=== PATIENT | female | born 1950 ===

== ENCOUNTER → 2023-08-13 11:43 | Outpatient (BNVA) | payer MEDICARE, SELFPAY | PROVIDERS: PCP Physician Assistant; Visit Provider Dietitian, Registered ==

== ENCOUNTER 2023-12-25 10:35 | Emergency (ER) | payer MEDICARE, SELFPAY ==
--- NOTE | ~2023-12-25 | XR_ITS ---
EXAMINATION: XR CHEST CLINICAL INFORMATION: Chest pain COMPARISON: None available. TECHNIQUE: Frontal view of the chest was obtained. FINDINGS: Heart size borderline with normal caliber pulmonary vessels. Lungs clear. No congestive change. There are surgical clips in the right upper quadrant. XR/XR chest 1V IMPRESSION: No active disease.
[2023-12-25 10:40] VITALS: BP 157/70; PULSE 69; RESP 20; TEMP 36.2; O2SAT 100; BMI 27.7
--- NOTE | 2023-12-25 10:44 | ECG_ITS ---
Test Reason : chest pain Blood Pressure : / mmHG Vent. Rate : 063 BPM Atrial Rate : 063 BPM P-R Int : 098 ms QRS Dur : 080 ms QT Int : 410 ms P-R-T Axes : 066 049 040 degrees QTc Int : 419 ms Sinus rhythm with short MO Otherwise normal ECG No previous ECGs available Referred By: Generic ED Physician Electronically Signed By:Benji Pabon
[2023-12-25 10:59] LABS: MANUAL DIFF FLAG NO
[2023-12-25 11:01] LABS: Basophils Percent Auto 0.4 % (0-2); Eosinophils Absolute Auto 0.1 X10*3/uL (0.0-0.4); Eosinophils Percent Auto 1.9 % (0-4); Hematocrit 29.2 % (37.0-47.0); Hemoglobin 9.4 g/dl (12.0-16.0); Imm Gran Abs Auto 0.01 X10*3/uL (0.00-0.03); Imm Gran Pct Auto 0.1 % (0.0-0.4); Lymphocytes Absolute Auto 1.5 X10*3/uL (1.2-4.9); Lymphocytes Percent Auto 19.8 % (20-40); Mean Corpuscular HGB Conc 32.2 g/dl (31.0-35.0); Mean Corpuscular Hemoglobin 25.9 pg (27.0-33.0); Mean Corpuscular Volume 80.4 fL (80.0-98.0); Mean Platelet Volume 10.1 fL (9.4-12.3); Monocytes Absolute Auto 0.5 X10*3/uL (0.1-1.2); Monocytes Percent Auto 6.4 % (2-11); Neutrophils Absolute Auto 5.2 x10*3/uL (2.0-8.3); Neutrophils Percent Auto 71.4 % (45-73); Platelet Count 304 X10*3/uL (160-400); Red Blood Count 3.63 X10*6/uL (4.20-5.50); Red Cell Distribution Width 16.2 % (11.0-16.0); White Blood Count 7.3 X10*3/uL (4.8-10.8)
[2023-12-25 11:17] LABS: Alanine Aminotransferase 10 U/L (0-31); Albumin Level 3.6 g/dL (3.5-5.0); Alkaline Phosphatase 76 U/L (39-117); Anion Gap 15 (12-20); Aspartate Amino Transferase 13 U/L (5-31); Bilirubin Direct 0.2 mg/dL (0.0-0.5); Bilirubin Total 0.6 mg/dL (0.0-1.0); Blood Urea Nitrogen 21 mg/dL (9-16); Calcium 9.4 mg/dL (8.4-10.2); Carbon Dioxide 21 mmol/L (22-29); Chloride 109 mmol/L (96-108); Creatinine Clr Calc Pharmacy 33.1; Estimated Glomerular Filt Rate 39; Glucose Random 169 mg/dL (60-115); Lipase 44 U/L (8-78); Potassium 4.5 mmol/L (3.3-5.1); Sodium 140 mmol/L (135-145); Total Protein 6.4 g/dL (6.5-8.0)
[2023-12-25 11:55] VITALS: BP 175/72; PULSE 63; RESP 16; O2SAT 100
--- NOTE | 2023-12-25 12:30 | ED.CHESTPAIN ---
HPI - Chest Pain General Chief Complaint: Chest Pain Stated Complaint: SOB, chest pain Time Seen by Provider: 12/25/23 12:22 Source: patient Mode of arrival: ambulatory Limitations: no limitations History of Present Illness HPI narrative: This is a 73-year-old female NIDDM type II, DM, HTN, HLD, CKD stage 3, hypothyroidism, EF 60-65%, CAD s/p stent in June 2023 presenting to the emergency department from cardiac rehab where she experienced an episode of substernal chest discomfort as well as some shortness of breath while exercising ( rowing) at rehab. Patient reports pain has resolved however it was pretty uncomfortable when she 1st experienced the pain lated 5 mins. Pain went away on its own. Patient denies fevers, chills, nausea, vomiting, cough, headach, chest pain, shortness breath, abdominal pain, headache and vision changes at this time. Related Data Allergies Allergy/AdvReac Type Severity Reaction Status Date / Time Unable to Assess Allergy Unverified 12/25/23 12:22 Review of Systems Review of Systems: Constitutional : No Weight loss, No Fever, No Chills, No Fatigue, No Malaise ENT/Mouth : No sore throat, No Rhinorrhea Eyes: No Eye Pain, No Swelling, No Redness Cardiovascular : No Chest Pain, No SOB, No Dyspnea on Exertion, No Orthopnea, No Edema, No Palpitations Respiratory : No Cough, No Sputum, No Wheezing Gastrointestinal : No Nausea, No Vomiting, No Diarrhea, No Constipation, No abdominal Pain, No Hematochezia, No Melena Genitourinary : No Dysuria, No Urinary Frequency, No Hematuria, Musculoskeletal : No joint pain, No Myalgias, No Joint Swelling Skin : No Skin Lesions, No rash Neuro : No Weakness, No Numbness, No Dizziness, No Headache Psych : No Anxiety/Panic, No Depression All other systems reviewed and are negative Yes all other systems are reviewed and are negative PMFSH Past Medical History Attestation statement: The following information was validated with the patient. Source: old records reviewed and nursing notes reviewed Social History Social History Smoked in Last 30 Days: No Use of substances other than those prescribed or required for medical reasons: No Advance Directives: No Physical Exam Vital Signs: Vital Signs: Last Vital Signs Temp 97.5 F 12/25/23 12:44 Pulse 74 12/25/23 15:12 Resp 16 12/25/23 15:12 BP 138/52 L 12/25/23 15:12 Pulse Ox 99 12/25/23 15:12 O2 Del Method Room Air 12/25/23 15:12 BMI result Body Mass Index 27.7 vss Appearance: Alert.? Oriented X3.? No acute distress.? Head: Normocephalic, atraumatic, no step-offs or deformities Eyes: Pupils equal, round and reactive to light.? ENT: Pharynx normal.? Neck: Normal inspection.? Neck supple.? CVS: Normal heart rate and rhythm.? Pulses normal.? Respiratory: No respiratory distress.? Breath sounds normal.? Abdomen: Soft and nontender.? Skin: Skin warm and dry.? Normal skin color.? Normal skin turgor.? Extremities: No lower extremity edema.? No calf ttp. 5/5 strength to bilateral upper and lower extremitie Neuro: Oriented X 3.? No motor deficit.? No sensory deficit. CN 2-12 intact Course Reevaluation(s) Reevaluation #1: Upon chart review it is noted that patient developed some chest discomfort during exercise , rated at a 5/10 and then it went down to a 2/10 with rest. Initially did not want to come to the emergency department. Time: 12:34 Reevaluation #2: Patient still not having pain. Would like to go home. Pending second trop Time: 14:18 Reevaluation #3: Second trope not meeting delta criteria. Discuss this case with Cardiology Dr. Pabon who states EKG nonischemic patient can be discharged home if pain free and if pain didnt feel like previous cp which she got stended for. Patient states pain felt different and no cp at all doesnt want to stay for stress test. Pain 0/10 on pain scale. Educated patient on diagnosis and treatment plan, answered all question, patient verbalizes understanding. At this time patient will be discharged home, advised to return with new or worsening symptoms. Educated on worrisome signs and symptoms and when to return. At this time I feel comfortable discharge home. Time: 16:01 Medical Decision Making Medical Decision Making MDM Narrative: 73-year-old female presents to the emergency department from cardiac rehab where she developed some substernal chest discomfort with exercise which has now resolved Physical exam benign History and physical exam concerning for unstable angina. Unlikely ACS, dissection, PE. Plan- labs, ekg, imaging Differential Diagnosis Differential Diagnoses: The differential diagnosis associated with the presentation includes History and physical exam concerning for unstable angina. Unlikely ACS, dissection, PE. Admission/Observation Consideration of admission/observation: Escalation of care including admission/observation considered Consult Healthcare Provider Management of the patient was discussed with: Marketing Representative (cardiology- ) Lab Data MDM Lab Attestation statement: I reviewed the patient's lab results. 12/25/23 10:56 12/25/23 10:56 Labs: Lab Results 12/25/23 12/25/23 12/25/23 Range/Units 10:56 12:32 15:12 WBC 7.3 (4.8-10.8) X10*3/uL RBC 3.63 L (4.20-5.50) X10*6/uL Hgb 9.4 L (12.0-16.0) g/dl Hct 29.2 L (37.0-47.0) % MCV 80.4 (80.0-98.0) fL MCH 25.9 L (27.0-33.0) pg MCHC 32.2 (31.0-35.0) g/dl RDW 16.2 H (11.0-16.0) % Plt Count 304 (160-400) X10*3/uL MPV 10.1 (9.4-12.3) fL Immature Gran % (Auto) 0.1 (0.0-0.4) % Neut % (Auto) 71.4 (45-73) % Lymph % (Auto) 19.8 L (20-40) % Ogle % (Auto) 6.4 (2-11) % Eos % (Auto) 1.9 (0-4) % Baso % (Auto) 0.4 (0-2) % Lymph # (Auto) 1.5 (1.2-4.9) X10*3/uL Ogle # (Auto) 0.5 (0.1-1.2) X10*3/uL Eos # (Auto) 0.1 (0.0-0.4) X10*3/uL Baso # (Auto) 0.0 (0.0-0.2) X10*3/uL Abs Immat Gran (auto) 0.01 (0.00-0.03) X10*3/uL Absolute Neuts (auto) 5.2 (2.0-8.3) x10*3/uL Absolute Nucleated RBC 0.000 (0.0-0.012) X10*3/uL Nucleated RBC % (auto) 0.0 (0.0-0.2) /100WBC PT 11.8 (11.1-13.3) SEC INR 1.0 (0.9-1.1) Sodium 140 (135-145) mmol/L Potassium 4.5 (3.3-5.1) mmol/L Chloride 109 H (96-108) mmol/L Carbon Dioxide 21 L (22-29) mmol/L Anion Gap 15 (12-20) BUN 21 H (9-16) mg/dL Creatinine 1.34 (0.5-1.4) mg/dL Estim Creat Clear Calc 33.1 Estimated GFR 39 Random Glucose 169 H (60-115) mg/dL Calcium 9.4 (8.4-10.2) mg/dL Total Bilirubin 0.6 (0.0-1.0) mg/dL Direct Bilirubin 0.2 (0.0-0.5) mg/dL AST 13 (5-31) U/L ALT 10 (0-31) U/L Alkaline Phosphatase 76 (39-117) U/L Troponin I High Sens 3.0 4.3 (<3.5-17.0) ng/L Total Protein 6.4 L (6.5-8.0) g/dL Albumin 3.6 (3.5-5.0) g/dL Lipase 44 (8-78) U/L Independent Interpretation I performed an independent interpretation of an: EKG (Ventricular rate of 63 ME short, QRS normal, QT/QTC normal. No ST elevations or inversions concerning for ischemia) and Plain X-Ray (XR/XR chest 1V IMPRESSION: No active disease. ) Radiology Impression Discussion of test interpretation with radiology: I have reviewed the radiologist's reading. External Record Review External record reviewed: Inpatient record, Office record, Outpatient record, Prior outpatient labs, Prior outpatient radiology, Primary care record and Outside ED record Critical Care Time Critical Care Time Critical Care Time: Yes Total Critical Care Time: 35 Attestation: I attest to this time spent taking care of the patient, obtaining history, physical, reviewing labs, imaging, speaking to my attending, speaking to specialist. Discharge Plan Discharge Clinical Impression: Angina pectoris Patient Disposition: Home, Self-Care Instructions: Angina (ED) Additional Instructions: Take your medications as prescribed. If you were prescribed antibiotics today, it is important that you take your medication to their entirety, do not skip any doses, do not finish them early. Follow-up with your primary care provider this week. Return to the emergency department with new or worsening symptoms. Such as fevers, chills, chest pain, shortness of breath, nausea, vomiting, dizziness, headache, vision changes, lethargy In case of emergency call 911 Please follow-up with cardiology. Referrals: [facility] [place]Provider Group] - 1 day Marisol Kendall PA [Primary Care Provider] - 2 days
[2023-12-25 12:44] VITALS: BP 183/73; PULSE 65; RESP 18; TEMP 36.4; O2SAT 100
[2023-12-25 12:45] LABS: Prothrombin Time 11.8 SEC (11.1-13.3)
[2023-12-25 15:12] VITALS: BP 138/52; PULSE 74; RESP 16; O2SAT 99
[2023-12-25 15:39] LABS: Troponin-I High Sensitivity 4.3 ng/L (<3.5-17.0)
== END 2023-12-25 16:28 | disposition home or self-care (01) ==
PROVIDERS: Physician Assistant; Emergency Provider Emergency Medicine; PCP Physician Assistant
DX: I20.9 Angina pectoris, unspecified (principal); R07.89 Other chest pain; R06.02 Shortness of breath; E11.22 Type 2 diabetes mellitus with diabetic chronic kidney disease; E11.65 Type 2 diabetes mellitus with hyperglycemia; I13.10 Hypertensive heart and chronic kidney disease without heart failure, with stage 1 through stage 4 chronic kidney disease, or unspecified chronic kidney disease; N18.30 Chronic kidney disease, stage 3 unspecified; Z79.899 Other long term (current) drug therapy
CPT/HCPCS: 36415; 71045; 80048; 80076; 83690; 84484; 85025; 85610; 93005; 99283; 99285

== ENCOUNTER → 2023-12-25 10:44 | Outpatient (BNV) | payer MEDICARE, SELFPAY | PROVIDERS: Emergency Provider Emergency Medicine; PCP Physician Assistant; Visit Provider Internal Medicine Cardiovascular Disease | DX: I45.6 Pre-excitation syndrome (principal) | CPT/HCPCS: 93010 ==

== ENCOUNTER 2024-01-28 10:04 | Outpatient (AMB) | payer MEDICARE, SELFPAY ==
[2024-01-28 10:11] VITALS: BMI 27.8
--- NOTE | 2024-01-28 10:11 | A.OFFVIS_ITS ---
Intake VS Expanded 01/28/24 10:11 01/28/24 12:22 Height 5 ft 1 in 5 ft 1 in Weight 147 lb 0.773 oz 147 lb BMI 27.8 27.8 Intake Visit Reasons: DM Allergies Unable to Assess Allergy (Unverified 12/25/23 12:22) HPI Nutrition Presentation Details Pt presents for MNT for T2DM. Pt was referred by Chiara Bull/Dr Montez from [facility]. Pt has hx of CKD stage 3, HNT, Hyperlipidemia, GERD, Hypothyroidism Pt reports having 3 meals per day , reports meals are small due to nausea, low appetite. Pt denies vomiting. B :may consist of 2-3 cracker with butter and coffee with milk, diet sugar L: noodles or root vegetables (no protein/veg/fruit added) D; rice (white/yellow no legumes) and bits of meat about 2oz or root vegetables plain with butter or oil the majority of the time ( no protein or non starchy veg added snack coffee with milk and crackers with butter fruits 0-1/d milk/cheese/yogurt: 1-2 /d non starchy ve x/wk (reports lettuce/tomatoes) protein 2-4 oz/d (tuna, ham, bits of sausage - reports limited due to nauseous feeling) starches > 16 oz/d beverages: coffee (16 oz), water (12 oz/d) physical activity--- ETOH--- Reports nausea and less appetite for protein foods Pt reports getting iron infusion (reports having had 2 iron infusions this month at [facility]) Pt did not bring glucometer , reports having erratic blood glucose from 60s to over 200 pre or post meals no recent A1c on file - last on 12/2022 at 8.2% Focused findings Nutrition-focused findings taste alterations, loss of appetite and nausea [employer] Equation Height 5 ft 1 in Weight 147 lb Resting Metabolic Rate 1119.25 Calculated Activity Level Sedentary Calories Needed to Maintain Weight 1343.10 Diagnosis Nutrition problem #1 inadequate protein energy As related to (etiology) #1 lack of nutrit education, decreased appetite and renal dysfunction As evidenced by (sign/symptom) #1 abnormal lab values ( Prot 6.4, Hgb/Hct 9.4/29.2 on 12/2023. Pt also reports erratic bg 60s to over 200 pre or post meals) and knowledge deficit of diet Most Recent Diabetes Results: Creatinine 1.34 mg/dL (0.5-1.4) 12/25/23 Blood Urea Nitrogen 21 mg/dL (9-16) H 12/25/23 Sodium 140 mmol/L (135-145) 12/25/23 Potassium 4.5 mmol/L (3.3-5.1) 12/25/23 Chloride 109 mmol/L (96-108) H 12/25/23 Carbon Dioxide 21 mmol/L (22-29) L 12/25/23 Calcium 9.4 mg/dL (8.4-10.2) 12/25/23 AST 13 U/L (5-31) 12/25/23 ALT 10 U/L (0-31) 12/25/23 Total Protein 6.4 g/dL (6.5-8.0) L 12/25/23 Albumin 3.6 g/dL (3.5-5.0) 12/25/23 [facility] Medical History (Updated 01/28/24 @ 12:29 by Chaya Echevarria, RD, LDN) GERD (gastroesophageal reflux disease) Hypothyroidism HTN (hypertension) CKD (chronic kidney disease) stage 3, GFR 30-59 ml/min Assessment & Plan Assessment & Plan (1) T2DM (type 2 diabetes mellitus): Code(s): E11.9 - Type 2 diabetes mellitus without complications Plan: RECOMMENDATION for PCP: Prescription for Ensure high protein (which provides 16 g protein each) for 2 a day. Pt may have erratic blood glucose level related to lack of protein intake in diet , CKD, and anemia. May recommend prescribing Ensure high protein supplement to have one in between meals twice a day related to CKD with anemia, low protein level as per labs on 12/2023, statements of low appetite, nausea and reduced protein in diet . Wt: 67 Kg ( 01/2024 ) Est kcal needs as per 25kcal/kg bw: 1700 (40% carb, 30% protein/fat) Est fluid needs as per 25-30 ml/d: 1700 Est prot per day as per 1 g/kg bw: 67 Recommend fiber intake : 8-10 g per day and gradually increase to 25-28 g per day for women and 35-38 g for men or as tolerated Recommend sodium intake per day : 1500 - less than 2000 mg Educated patient on: ( R = reviewed V = verbalizes understanding N/R = needs review N/A = not applicable * Food sources of carbohydrate, adequate serving sizes and its role in various health conditions: R * Differences between complex carbohydrates a simple carbohydrates, role of fiber in diet: R * Lean protein sources of foods, its relationship to bg, anemia and symptoms related to nausea : R * Differences between types of fats and role in diet (mono on saturated fat fatty acids, saturated fatty acids, trans fats): N/R * Food sources of sodium in salt and healthy modifications for heart health in kidney health: NR * Vitamins and minerals: R (iron sources of foods) * Healthy plate method concept: R * Physical activity: Benefits a precaution: N/R * Hypoglycemia protocol (rule of 15): R * Dietary prevention of Hyperglycemia: R Patient Instructions: Include lean protein in your diet -working on balancing your meals example add tuna to the crackers in the morning, add egg to the noodle soup. See list of protein and iron sources of foods to include in your diet following healthy plate method keep a food record and bring to next follow up for review. Recommend prescription from PCP for Ensure high protein to have one in between meals twice a day Coding Level of Care Code Nutr Indiv Intake (90392) Diagnoses T2DM (type 2 diabetes mellitus) E11.9 Time Spent (min) 35
[2024-01-28 12:22] VITALS: BMI 27.8
== END 2024-01-28 11:05 | disposition home or self-care (01) ==
PROVIDERS: PCP Physician Assistant; Visit Provider Dietitian, Registered
DX: E11.9 Type 2 diabetes mellitus without complications (principal)

== ENCOUNTER → 2024-01-28 10:04 | Outpatient (BNVA) | payer MEDICARE, SELFPAY | PROVIDERS: PCP Physician Assistant; Visit Provider Dietitian, Registered | DX: E11.9 Type 2 diabetes mellitus without complications (principal) | CPT/HCPCS: 97802 ==

== ENCOUNTER 2024-02-17 10:00 | Outpatient (RCR) | payer MEDICARE, SELFPAY | END 2024-02-19 12:11 | disposition home or self-care (01) | LOC: HO.CR 10:00 | PROVIDERS: PCP Physician Assistant; Visit Provider Nurse Practitioner Family | DX: Z98.61 Coronary angioplasty status (principal) | CPT/HCPCS: 93798 ==

== ENCOUNTER 2024-02-25 09:54 | Outpatient (AMB) | payer MEDICARE, SELFPAY ==
[2024-02-25 10:00] VITALS: BMI 27.4
--- NOTE | 2024-02-25 10:00 | MHC.AMNUTRGE ---
Intake VS Expanded 02/25/24 10:00 Height 5 ft 1 in Weight 145 lb 1.027 oz BMI 27.4 Intake Visit Reasons: T2DM/CONFIRMED Allergies Unable to Assess Allergy (Unverified 12/25/23 12:22) HPI Nutrition Presentation Details Pt presents for MNT follow up for T2DM Pt reports doing ok Pt reports not including meats/protein in diet , does not like the flavor not having nutritional supplements Reports choosing foods with little preparation for the most part Breakfast may be a piece of bread with butter and water or tea or coffee Lunch may be ramen noodles and nothing else added, water Dinner may be root vegetables boiled or sandwich with tuna or ham and cheese or may have cereal Snack on crackers and butter or cheese Not on nutritional supplements as of yet Most Recent Diabetes Results: Creatinine 1.34 mg/dL (0.5-1.4) 12/25/23 Blood Urea Nitrogen 21 mg/dL (9-16) H 12/25/23 Sodium 140 mmol/L (135-145) 12/25/23 Potassium 4.5 mmol/L (3.3-5.1) 12/25/23 Chloride 109 mmol/L (96-108) H 12/25/23 Carbon Dioxide 21 mmol/L (22-29) L 12/25/23 Calcium 9.4 mg/dL (8.4-10.2) 12/25/23 AST 13 U/L (5-31) 12/25/23 ALT 10 U/L (0-31) 12/25/23 Total Protein 6.4 g/dL (6.5-8.0) L 12/25/23 Albumin 3.6 g/dL (3.5-5.0) 12/25/23 [facility] Medical History (Updated 01/28/24 @ 12:29 by Chaya Echevarria, RD, LDN) GERD (gastroesophageal reflux disease) Hypothyroidism HTN (hypertension) CKD (chronic kidney disease) stage 3, GFR 30-59 ml/min Assessment & Plan Assessment & Plan (1) T2DM (type 2 diabetes mellitus): Code(s): E11.9 - Type 2 diabetes mellitus without complications Plan: RECOMMENDATION for PCP: Prescription for Ensure high protein (which provides 16 g protein each) for 2 a day. Pt may have erratic blood glucose level related to lack of protein intake in diet , CKD, and anemia. May recommend prescribing Ensure high protein supplement to have one in between meals twice a day related to CKD with anemia, low protein level as per labs on 12/2023, statements of low appetite, nausea and reduced protein in diet . Wt: 67 Kg ( 01/2024 ) Est kcal needs as per 25kcal/kg bw: 1700 (40% carb, 30% protein/fat) Est fluid needs as per 25-30 ml/d: 1700 Est prot per day as per 1 g/kg bw: 67 Recommend fiber intake : 8-10 g per day and gradually increase to 25-28 g per day for women and 35-38 g for men or as tolerated Recommend sodium intake per day : 1500 - less than 2000 mg Educated patient on: ( R = reviewed V = verbalizes understanding N/R = needs review N/A = not applicable Food sources of carbohydrate, adequate serving sizes and its role in various health conditions: R Differences between complex carbohydrates a simple carbohydrates, role of fiber in diet: R Lean protein sources of foods, its relationship to bg, anemia and symptoms related to nausea : R Differences between types of fats and role in diet (mono on saturated fat fatty acids, saturated fatty acids, trans fats): N/R Food sources of sodium in salt and healthy modifications for heart health in kidney health: R- printed info provided in [employer] Vitamins and minerals: R (iron sources of foods) Healthy plate method concept: R Physical activity: Benefits a precaution: N/R Hypoglycemia protocol (rule of 15): R Dietary prevention of Hyperglycemia: R Patient Instructions: Have a snack at bedtime consisting of at least 20-30 g of carb to prevent fasting hypoglycemia and include foods with iron - -- a fruit and peanut butter, 1 cup of milk - 1/2 sandwich (egg salad, chicken salad as ex) and 1 c of milk - fortified cereals ex 1 cheerios and 1/2 to 1 c of milk Add asparagus to the rice/noodles , add eggs to the soups, add spinach - choose egg noodles or ybarra pasta see list of protein foods options to add to foods and list of iron rich foods to add to foods/include in your diet Have a nutritional supplement at least once a day in between meals Coding Level of Care Code Nutr Indiv Subseq (04435) Diagnoses T2DM (type 2 diabetes mellitus) E11.9 Time Spent (min) 30
== END 2024-02-25 10:55 | disposition home or self-care (01) ==
PROVIDERS: PCP Physician Assistant; Visit Provider Dietitian, Registered
DX: E11.9 Type 2 diabetes mellitus without complications (principal)

== ENCOUNTER → 2024-02-25 09:54 | Outpatient (BNVA) | payer MEDICARE, SELFPAY | PROVIDERS: PCP Physician Assistant; Visit Provider Dietitian, Registered | DX: E11.9 Type 2 diabetes mellitus without complications (principal) | CPT/HCPCS: 97803 ==

== ENCOUNTER 2024-04-08 09:49 | Outpatient (AMB) | payer MEDICARE, SELFPAY ==
--- NOTE | 2024-04-08 10:01 | A.OFFVIS_ITS ---
VS Expanded 04/08/24 10:02 Height 5 ft 1 in Weight 144 lb 2.917 oz BMI 27.2 Intake Visit Reasons: T2DM/ VMB FULL Allergies Unable to Assess Allergy (Unverified 12/25/23 12:22) Nutrition Presentation Details: Pt presents for MNT f/u for T2DM Pt reports working on not skipping meals and having a nutritional supplement instead of skipping meals Pt reports reading food labels , choosing foods lower in sodium, and working on balancing meals including lean protein and starches. Pt reports having better glucose levels, per glucometer brought today: 7 d fasting blood sugar average 90 mg/dl, 14 d fasting bg average at 88 mg/dl, for the past 14 days her fassting blood sugar ranged from 70-115 mg/dl DM MEDS: Pt reports taking glipizide 10 mg once a day , Actos 45 mg/d, metformin 1000 mg twice a day BS Monitoring Most Recent Diabetes Results: Creatinine 1.34 mg/dL (0.5-1.4) 12/25/23 Blood Urea Nitrogen 21 mg/dL (9-16) H 12/25/23 Sodium 140 mmol/L (135-145) 12/25/23 Potassium 4.5 mmol/L (3.3-5.1) 12/25/23 Chloride 109 mmol/L (96-108) H 12/25/23 Carbon Dioxide 21 mmol/L (22-29) L 12/25/23 Calcium 9.4 mg/dL (8.4-10.2) 12/25/23 AST 13 U/L (5-31) 12/25/23 ALT 10 U/L (0-31) 12/25/23 Total Protein 6.4 g/dL (6.5-8.0) L 12/25/23 Albumin 3.6 g/dL (3.5-5.0) 12/25/23 [facility] Medical History (Updated 01/28/24 @ 12:[address], LDN) GERD (gastroesophageal reflux disease) Hypothyroidism HTN (hypertension) CKD (chronic kidney disease) stage 3, GFR 30-59 ml/min Assessment & Plan Assessment & Plan (1) T2DM (type 2 diabetes mellitus): Code(s): E11.9 - Type 2 diabetes mellitus without complications Category: Medical Plan: Wt: 67 Kg ( 01/2024 ), 65 kg (04/2024) Est kcal needs as per 25kcal/kg bw: 1700 (40% carb, 30% protein/fat) Est fluid needs as per 25-30 ml/d: 1700 Est prot per day as per 1 g/kg bw: 67 Recommend fiber intake : 8-10 g per day and gradually increase to 25-28 g per day for women and 35-38 g for men or as tolerated Recommend sodium intake per day : 1500 - less than 2000 mg Educated patient on: ( R = reviewed V = verbalizes understanding N/R = needs review N/A = not applicable * Food sources of carbohydrate, adequate serving sizes and its role in various health conditions: R * Differences between complex carbohydrates a simple carbohydrates, role of fiber in diet: R * Lean protein sources of foods, its relationship to bg, anemia and symptoms related to nausea : R * Differences between types of fats and role in diet (mono on saturated fat fatty acids, saturated fatty acids, trans fats): N/R * Food sources of sodium in salt and healthy modifications for heart health in kidney health: R- printed info provided in [employer] * Vitamins and minerals: R (iron sources of foods) * Healthy plate method concept: R * Physical activity: Benefits a precaution: N/R * Hypoglycemia protocol (rule of 15): R * Dietary prevention of Hyperglycemia: R Patient Instructions: Continue having 3 meal per day balancing your meals with a combination of protein/starch/vegetables Have a bedtime snack consisting of at least 1 carb choice and 1-2 oz of protein (fruit/a slice of bread/ 1 c low sugar cereal /1 cup of milk/ yogurt /egg/ cotta ge chees/peanut butter ) to prevent low blood sugars at night / Work on reducing on sodium intake - switch to low sodium seasoning - see list of options monitor your blood sugar 2 hours after a meal Discuss your diabetes medications with your doctor Coding Level of Care Code Nutr Indiv Subseq (20381) Diagnoses T2DM (type 2 diabetes mellitus) E11.9 Time Spent (min) 30
[2024-04-08 10:02] VITALS: BMI 27.2
== END 2024-04-08 10:45 | disposition home or self-care (01) ==
PROVIDERS: PCP Physician Assistant; Visit Provider Dietitian, Registered
DX: E11.9 Type 2 diabetes mellitus without complications (principal)

== ENCOUNTER → 2024-04-08 09:49 | Outpatient (BNVA) | payer MEDICARE, SELFPAY | PROVIDERS: PCP Physician Assistant; Visit Provider Dietitian, Registered | DX: E11.9 Type 2 diabetes mellitus without complications (principal) | CPT/HCPCS: 97803 ==

== ENCOUNTER 2024-05-06 12:42 | Outpatient (REF) | payer MEDICARE, SELFPAY ==
[2024-05-06 15:17] LABS: Glucose, Whole Blood 113 mg/dL (60-115)
== END 2024-05-06 12:43 | disposition home or self-care (01) ==
LOC: HO.LNP 12:42
PROVIDERS: Visit Provider Nurse Practitioner Family
DX: Z13.9 Encounter for screening, unspecified (principal)
CPT/HCPCS: 82947

== ENCOUNTER 2024-06-08 08:21 | Outpatient (AMB) | payer MEDICARE, SELFPAY ==
[2024-06-08 08:32] VITALS: BMI 27.2
--- NOTE | 2024-06-08 08:32 | A.OFFVIS_ITS ---
VS Expanded 06/08/24 08:32 Height 5 ft 1 in Weight 143 lb 15.39 oz BMI 27.2 Intake Visit Reasons: T2DM/CONFIRMED Allergies Unable to Assess Allergy (Unverified 12/25/23 12:22) Nutrition Presentation Details: Pt presents for MNT f/u for T2DM Pt reports having 3 meals/day and 1-2 snacks a day. Meals consist of B: Coffee with diet sugar and hot cereal or 1 toast and egg and coffee L: skips or has glucerna shake or 1/2 sand D: rice/chicken or pasta salad with tuna and carrots, water or sprite snack: crackers with peanut butter or piece of cake Pt brought glucometer ,Pt monitoring in the fasting state , 14 d BG average at 121 mg/dl, FBG in the past 7 days: 102, 141, ,78,97, 162, 103,175, 93,178,138,195,95,118, 97 Pt reports taking her DM meds as rx by prescribing provider: ,glipizide 10 mg/d, Actos, not sure if 30 mg or 45 mg/d, metformin 1000 mg twice/day Pt reports having lesser episodes of elevated fasting blood glucose and also lesser episodes of hypoglycemia. BS Monitoring Most Recent Diabetes Results: Creatinine 1.34 mg/dL (0.5-1.4) 12/25/23 Blood Urea Nitrogen 21 mg/dL (9-16) H 12/25/23 Sodium 140 mmol/L (135-145) 12/25/23 Potassium 4.5 mmol/L (3.3-5.1) 12/25/23 Chloride 109 mmol/L (96-108) H 12/25/23 Carbon Dioxide 21 mmol/L (22-29) L 12/25/23 Calcium 9.4 mg/dL (8.4-10.2) 12/25/23 AST 13 U/L (5-31) 12/25/23 ALT 10 U/L (0-31) 12/25/23 Total Protein 6.4 g/dL (6.5-8.0) L 12/25/23 Albumin 3.6 g/dL (3.5-5.0) 12/25/23 [facility] Medical History (Updated 01/28/24 @ 12:[address], LDN) GERD (gastroesophageal reflux disease) Hypothyroidism HTN (hypertension) CKD (chronic kidney disease) stage 3, GFR 30-59 ml/min Assessment & Plan Assessment & Plan (1) T2DM (type 2 diabetes mellitus): Code(s): E11.9 - Type 2 diabetes mellitus without complications Category: Medical Plan: Wt: 67 Kg ( 01/2024 ), 65 kg (04/2024), 65 kg(06/2024) Est kcal needs as per 25kcal/kg bw: 1700 (40% carb, 30% protein/fat) Est fluid needs as per 25-30 ml/d: 1700 Est prot per day as per 1 g/kg bw: 67 Recommend fiber intake : 8-10 g per day and gradually increase to 25-28 g per day for women and 35-38 g for men or as tolerated Recommend sodium intake per day : 1500 - less than 2000 mg Educated patient on: ( R = reviewed V = verbalizes understanding N/R = needs review N/A = not applicable * Food sources of carbohydrate, adequate serving sizes and its role in various health conditions: R * Differences between complex carbohydrates a simple carbohydrates, role of fiber in diet: R * Lean protein sources of foods, its relationship to bg, anemia and symptoms related to nausea : R * Differences between types of fats and role in diet (mono on saturated fat fatty acids, saturated fatty acids, trans fats): R * Food sources of sodium in salt and healthy modifications for heart health in kidney health: R- printed info provided in Span * Vitamins and minerals: R (iron sources of foods) * Healthy plate method concept: R * Physical activity: Benefits a precaution: R * Hypoglycemia protocol (rule of 15): R, V * Dietary prevention of Hyperglycemia: R , V Patient Instructions: Continue working on following healthy plate method,not skipping meals to prevent having high fluctuation in blood sugar level Carry a snack with you to prevent skipping meals : ex: peanut butter crackers or nut butter sand or fruit and nuts or glucerna shake as example Have a bedtime snack to prevent fasting low blood glucose monitor your blood sugar 2 hours after eating your largest meal , blood sugar goal is less than 180, unless otherwise specified by your doctor communicate with your doctor your blood sugar level for further evaluation. Coding Level of Care Code Nutr Indiv Subseq (99683) Diagnoses T2DM (type 2 diabetes mellitus) E11.9 Time Spent (min) 30
== END 2024-06-08 09:07 | disposition home or self-care (01) ==
PROVIDERS: PCP Physician Assistant; Visit Provider Dietitian, Registered
DX: E11.9 Type 2 diabetes mellitus without complications (principal)

== ENCOUNTER → 2024-06-08 08:21 | Outpatient (BNVA) | payer MEDICARE, SELFPAY | PROVIDERS: PCP Physician Assistant; Visit Provider Dietitian, Registered | DX: E11.9 Type 2 diabetes mellitus without complications (principal); Z71.3 Dietary counseling and surveillance | CPT/HCPCS: 97803 ==

== ENCOUNTER 2024-09-08 08:16 | Outpatient (AMB) | payer MEDICARE, SELFPAY ==
[2024-09-08 08:30] VITALS: BMI 28.1
--- NOTE | 2024-09-08 08:30 | A.OFFVIS_ITS ---
VS Expanded 09/08/24 08:30 Height 5 ft 1 in Weight 148 lb 12.992 oz BMI 28.1 Intake Visit Reasons: T2DM/Unable to lvm mailbox full Allergies Unable to Assess Allergy (Unverified 12/25/23 12:22) Medication List - Last Reconciled 09/08/[address], LDN glipizide 5 mg PO DAILY metformin ER 1,000 mg PO BID pioglitazone (Actos) 45 mg PO DAILY Nutrition Presentation Details: Pt presents for MNT f/u for T2DM Pt reports dealing with a cold and is having soups, liquids Did not bring bg to this appt food frequency fish at least 2 times a week fluid: reports 16 oz/day fruits : 2 fruits vegetables: 2 x/wk starches 16 servings/d physical activity daily life activities BS Monitoring Most Recent Diabetes Results: Creatinine 1.34 mg/dL (0.5-1.4) 12/25/23 Blood Urea Nitrogen 21 mg/dL (9-16) H 12/25/23 Sodium 140 mmol/L (135-145) 12/25/23 Potassium 4.5 mmol/L (3.3-5.1) 12/25/23 Chloride 109 mmol/L (96-108) H 12/25/23 Carbon Dioxide 21 mmol/L (22-29) L 12/25/23 Calcium 9.4 mg/dL (8.4-10.2) 12/25/23 AST 13 U/L (5-31) 12/25/23 ALT 10 U/L (0-31) 12/25/23 Total Protein 6.4 g/dL (6.5-8.0) L 12/25/23 Albumin 3.6 g/dL (3.5-5.0) 12/25/23 [facility] Medical History (Updated 01/28/24 @ 12:[address], LDN) GERD (gastroesophageal reflux disease) Hypothyroidism HTN (hypertension) CKD (chronic kidney disease) stage 3, GFR 30-59 ml/min Assessment & Plan Assessment & Plan (1) T2DM (type 2 diabetes mellitus): Code(s): E11.9 - Type 2 diabetes mellitus without complications Category: Medical Plan: Wt: 67 Kg ( 01/2024 ), 65 kg (04/2024), 65 kg(06/2024), 67.7 (09/24) Est kcal needs as per 25kcal/kg bw: 1700 (40% carb, 30% protein/fat) Est fluid needs as per 25-30 ml/d: 1700 Est prot per day as per 1 g/kg bw: 67 Recommend fiber intake : 8-10 g per day and gradually increase to 25-28 g per day for women and 35-38 g for men or as tolerated Recommend sodium intake per day : 1500 - less than 2000 mg Educated patient on: ( R = reviewed V = verbalizes understanding N/R = needs review N/A = not applicable * Food sources of carbohydrate, adequate serving sizes and its role in various health conditions: R * Differences between complex carbohydrates a simple carbohydrates, role of fiber in diet: R * Lean protein sources of foods, its relationship to bg, anemia and symptoms related to nausea : R * Differences between types of fats and role in diet (mono on saturated fat fatty acids, saturated fatty acids, trans fats): R * Food sources of sodium in salt and healthy modifications for heart health in kidney health: R- printed info provided in Span * Vitamins and minerals: R , v (iron sources of foods) * Healthy plate method concept: R * Physical activity: Benefits a precaution: R * Hypoglycemia protocol (rule of 15): R, V * Dietary prevention of Hyperglycemia: R , V Patient Instructions: Choose naturally salt free foods Do not add table salt to the foods Follow healthy plate method monitor your blood sugar fasting and 2 hours after a meal Coding Level of Care Code Nutr Indiv Subseq (88938) Diagnoses T2DM (type 2 diabetes mellitus) E11.9 Time Spent (min) 30
== END 2024-09-08 09:08 | disposition home or self-care (01) ==
PROVIDERS: PCP Physician Assistant; Visit Provider Dietitian, Registered
DX: E11.9 Type 2 diabetes mellitus without complications (principal)

== ENCOUNTER → 2024-09-08 08:16 | Outpatient (BNVA) | payer MEDICARE, SELFPAY | PROVIDERS: PCP Physician Assistant; Visit Provider Dietitian, Registered | DX: E11.9 Type 2 diabetes mellitus without complications (principal) | CPT/HCPCS: 97803 ==